=== PATIENT | female | born 1985 | race Caucasian/White ===

== ENCOUNTER 2016-11-12 09:27 | Outpatient (CLI) | payer OTHER ==
[2016-11-12] MEDS ORDERED: BUFFERED LIDOCAINE 10 ML SYRINGE IU ONE (12:39)
== END 2016-11-12 09:28 | disposition home or self-care (01) ==
DX: C73 Malignant neoplasm of thyroid gland (principal); E04.9 Nontoxic goiter, unspecified

== ENCOUNTER 2017-08-23 20:01 | Emergency (ER) | payer OTHER ==
[2017-08-23] MEDS ORDERED: SODIUM CHLORIDE 0.9% 1,000 ML IV ONE (20:33)
[2017-08-23 20:54] LABS: ALBUMIN/GLOBULIN RATIO 1.7 (1.0-2.2); BILIRUBIN,TOTAL 0.4 mg/dL (0.2-1.0); CALCIUM 7.8 mg/dL (8.5-10.3); CREATININE 0.8 mg/dL (0.4-1.0); POTASSIUM 3.3 mmol/L (3.5-5.0); TOTAL PROTEIN 7.1 g/dL (6.7-8.2)
[2017-08-23 20:57] LABS: BASOPHILS % (AUTO) 0.4 %; EOSINOPHILS # (AUTO) 0.1 10^3/uL (0.0-0.7); EOSINOPHILS % (AUTO) 1.6 %; HCT - HEMATOCRIT 37.6 % (37.0-47.0); HGB - HEMOGLOBIN 12.7 g/dL (12.0-16.0); LYMPHOCYTES # (AUTO) 2.6 10^3/uL (1.5-3.5); LYMPHOCYTES % (AUTO) 40.8 %; MEAN CORPUSCULAR HEMOGLOBIN 29.6 pg (27.0-31.0); MEAN CORPUSCULAR HGB CONC 33.9 g/dL (32.0-36.0); MEAN CORPUSCULAR VOLUME 87.5 fL (81.0-99.0); MEAN PLATELET VOLUME 7.7 fL (7.9-10.8); MONOCYTES # (AUTO) 0.6 10^3/uL (0.0-1.0); MONOCYTES % (AUTO) 8.8 %; NEUTROPHILS # (AUTO) 3.1 10^3/uL (1.5-6.6); NEUTROPHILS % (AUTO) 48.4 %; UNCORRECTED WHITE BLOOD COUNT 6.4 x10^3/uL; WHITE BLOOD COUNT 6.4 x10^3/uL (4.8-10.8)
[2017-08-23] MEDS ORDERED: CALCIUM GLUCONATE 1000 MG/10 ML VIAL IVP STA (21:03)
[2017-08-23] MEDS ORDERED: CALCIUM GLUCONATE 1000 MG/10 ML VIAL ONE (21:13)
[2017-08-23] MEDS ORDERED: CALCIUM CITRATE 250 MG TABLET PO ONE (21:26)
[2017-08-23] MEDS ORDERED: CALCIUM CITRATE 250 MG TABLET PO SCH (22:00)
--- NOTE | 2017-08-23 22:03 | ED Physician Documentation ---
History of Present Illness - Stated complaint Stated Complaint: TINGLING SENSATION EYES,FINGERTIPS - Chief complaint Chief Complaint: General - History obtained from History obtained from: Patient - History of Present Illness Timing: Today - Additonal information Additional information: Patient is a 32 year old female presenting to the emergency department for tingling in her face hands and feet. patient states that she had this once before and it was because her calcium was low. Patient had thyroid surgery but reports that her previous parathyroid levels have been normal. 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: None : None HEENT: None Psych: Depression, Post traumatic stress disorder Musculoskeletal: None Derm: None Other Past Medical History: Calcium deficiency - Past Surgical History Past Surgical History: Yes /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: section, Breast reduction - Present Medications Home Medications: Ambulatory Orders Medication Instructions Recorded Confirmed Calcium Carbonate/Vitamin D3 2 tab PO DAILY 08/23/17 08/23/17 [Calcium 600-Vit D3 500 Softgel] Calcium Citrate/Vitamin D3 1 tab PO DAILY 08/23/17 08/23/17 [Citracal-Vit D3 200 mg-250 Tab] Escitalopram Oxalate [Lexapro] 20 mg PO DAILY 08/23/17 08/23/17 Levothyroxine Sodium [Synthroid] 137 mcg PO DAILY 08/23/17 08/23/17 Loratadine [Claritin] 1 tab PO DAILY 08/23/17 08/23/17 - Allergies Allergies/Adverse Reactions: Allergies Allergy/AdvReac Type Severity Reaction Status Date / Time No Known Drug Allergies Allergy Verified 08/23/17 20:10 - Social History Does the pt smoke?: No Smoking Status: Never smoker Does the pt drink ETOH?: No Does the pt have substance abuse?: No - Immunizations Immunizations are current?: Yes PD ED PE NORMAL - Vitals Vital signs reviewed: Yes - General General: Alert and oriented X 3, No acute distress, Well developed/nourished - HEENT HEENT: Atraumatic, PERRL, Pharynx benign - Neck Neck: Supple, no meningeal sign - Cardiac Cardiac: RRR, No murmur - Respiratory Respiratory: No respiratory distress, Clear bilaterally - Abdomen Abdomen: Soft, Non tender, Non distended - Derm Derm: Normal color, Warm and dry, No rash - Extremities Extremities: No deformity, Normal ROM s pain, No edema, No calf tenderness / cord - Neuro Neuro: Alert and oriented X 3, No motor deficit, No sensory deficit, Normal speech, Other (no carpal pedal spasm, tetany or fasiculations) Eye Opening: Spontaneous Motor: Obeys Commands Verbal: Oriented GCS Score: 15 - Psych Psych: Normal mood Results - Vitals Vitals: Vital Signs - 24 hr 08/23/17 08/23/17 08/23/17 20:06 20:44 21:15 Temperature 36.5 C 36.4 C L Heart Rate 86 66 67 Respiratory 18 12 16 Rate Blood Pressure 118/83 H 145/79 H 136/80 H O2 Saturation 100 100 100 08/23/17 08/23/17 21:46 22:11 Temperature 37.4 C Heart Rate 69 89 Respiratory 16 18 Rate Blood Pressure 122/89 H 120/75 O2 Saturation 100 100 Oxygen O2 Source Room air - EKG (time done) 2032 Rate: Rate (enter#) (65) Rhythm: NSR Crawford: Normal Intervals: Other (qt 441 borderline prolong) Ischemia: Normal ST segments Compare to prior EKG: Old EKG unavailable - Labs Labs: Laboratory Tests 08/23/17 08/23/17 08/23/17 20:36 20:36 20:36 WBC 6.4 RBC 4.30 Hgb 12.7 Hct 37.6 MCV 87.5 MCH 29.6 MCHC 33.9 RDW 14.0 Plt Count 286 MPV 7.7 L Neut # 3.1 Lymph # 2.6 [facility] # 0.6 Eos # 0.1 Baso # 0.0 Absolute Nucleated RBC 0.00 Nucleated RBC % 0.0 Sodium 136 Potassium 3.3 L Chloride 102 Carbon Dioxide 25 Anion Gap 9.0 BUN 14 Creatinine 0.8 Estimated GFR (MDRD) 83 L Glucose 97 Calcium 7.8 L Total Bilirubin 0.4 AST 19 ALT 19 Alkaline Phosphatase 47 Total Protein 7.1 Albumin 4.5 Globulin 2.6 Albumin/Globulin Ratio 1.7 PTH Intact 28 PD MEDICAL DECISION MAKING - ED course Complexity details: reviewed old records, reviewed results, re-evaluated patient , considered differential, d/w patient ED course: patient was seen and examined at bedside. ekg was performed and was normal sinus with borderline qt. IV access was gained and labs were drawn. patient's calcium was slightly low at 7.8. Patient was treated with IV and oral calcium. patient's pth was within normal limits. patient required no further work up at this time and was stable for discharge with outpatient follow up. Departure - Departure Disposition: 01 Home, Self Care Clinical Impression: Hypocalcemia Condition: Good Instructions: ED Hypocalcemia Follow-Up: Jaron Mireles MD [Primary Care Provider] - Comments: Your symptoms today are likely being caused by low calcium. Your levels were only slightly decreased and you were treated with oral and IV calcium. You will need to continue with calcium supplementation. You should follow up with your pmd for a retirement solution. You should return to the emergency department at any time for numbness, tingling weakness, new, worsening or uncontrollable symptoms. Discharge Date/Time: 08/23/17 22:14
[2017-08-23 22:12] VITALS: BP 120/75
== END 2017-08-23 22:14 | disposition home or self-care (01) ==
LOC: ED 20:01
DX: E83.51 Hypocalcemia (principal)
CPT/HCPCS: 36415; 80053; 83970; 85025; 93005; 96361; 96374; 99284; A9270; 80048

== ENCOUNTER 2018-10-18 09:22 | Emergency (ER) | payer OTHER ==
--- NOTE | 2018-10-18 09:31 | ED Physician Documentation ---
PD HPI URI - Stated complaint Stated Complaint: FLU SYMPTOMS - History obtained from History obtained from: Patient - History of Present Illness Timing - onset: How many days ago (several) Timing duration: Days (several) Timing details: Abrupt onset, Still present Associated symptoms: Fever, Chills, Nasal congestion, Sore throat, Dry cough, Dyspnea. No: Chest pain, NVD, Bilateral edema Contributing factors: Sick contact (works in a school, so ill contacts often) Similar symptoms before: Has not had sx before Recently seen: Not recently seen Review of Systems Constitutional: reports: Fever, Chills, Myalgias Nose: reports: Congestion. denies: Rhinorrhea / runny nose Throat: reports: Sore throat Respiratory: reports: Cough GI: reports: Nausea. denies: Abdominal Pain, Vomiting, Diarrhea Skin: denies: Rash, Lesions Neurologic: reports: Generalized weakness, Headache. denies: Altered mental s tatus PD PAST MEDICAL HISTORY - Past Medical History Cardiovascular: Other Respiratory: None Endocrine/Autoimmune: None GI: None MARKETING RESEARCH INTERN: None : None HEENT: None Psych: Depression, Post traumatic stress disorder Musculoskeletal: None Derm: None - Past Surgical History Past Surgical History: Yes /MARKETING RESEARCH INTERN: section, Breast reduction - Present Medications Home Medications: Ambulatory Orders Medication Instructions Recorded Confirmed Calcium Carbonate/Vitamin D3 2 tab PO DAILY 08/23/17 10/18/18 [Calcium 600-Vit D3 500 Softgel] Calcium Citrate/Vitamin D3 1 tab PO DAILY 08/23/17 10/18/18 [Citracal-Vit D3 200 mg-250 Tab] Escitalopram Oxalate [Lexapro] 20 mg PO DAILY 08/23/17 10/18/18 Levothyroxine Sodium [Synthroid] 137 mcg PO DAILY 08/23/17 10/18/18 Loratadine [Claritin] 1 tab PO DAILY 08/23/17 10/18/18 Albuterol Sulf [Ventolin Hfa 1 - 2 puffs INH Q4HR PRN #1 inhaler 10/18/18 Inhaler] Benzonatate [Tessalon Perle] 100 mg PO TID PRN #25 capsule 10/18/18 Dexamethasone [Decadron] 4 mg PO DAILY #5 tablet 10/18/18 Ondansetron Odt [Zofran] 4 mg TL Q6H PRN #15 tablet 10/18/18 - Allergies Allergies/Adverse Reactions: Allergies Allergy/AdvReac Type Severity Reaction Status Date / Time No Known Drug Allergies Allergy Verified 10/18/18 09:29 - Social History Does the pt smoke?: No Smoking Status: Never smoker Does the pt drink ETOH?: Yes Does the pt have substance abuse?: No - Immunizations Immunizations are current?: Yes PD ED PE NORMAL - Vitals Vital signs reviewed: Yes - General General: Alert and oriented X 3, No acute distress, Well developed/nourished - HEENT HEENT: Ears normal, Moist mucous membranes, Pharynx benign - Neck Neck: Supple, no meningeal sign, No adenopathy - Cardiac Cardiac: RRR, No murmur - Respiratory Respiratory: Clear bilaterally - Abdomen Abdomen: Soft, Non tender - Back Back: No CVA TTP - Derm Derm: Normal color, Warm and dry, No rash Results - Vitals Vitals: Vital Signs - 24 hr 10/18/18 10/18/18 10/18/18 09:28 10:02 10:49 Temperature 36.3 C L Heart Rate 83 83 72 Respiratory 20 20 18 Rate Blood Pressure 138/78 H 112/87 H O2 Saturation 98 96 Oxygen O2 Source Room air PD MEDICAL DECISION MAKING - ED course Complexity details: reviewed results, considered differential, d/w patient Departure - Departure Disposition: 01 Home, Self Care Clinical Impression: Upper respiratory infection Qualifiers: URI type: unspecified URI Qualified Code(s): J06.9 - Acute upper respiratory infection, unspecified Condition: Stable Record reviewed to determine appropriate education?: Yes Instructions: ED Upper Resp Infec No Abx Tx Follow-Up: KAMILAH TORRES DO [Primary Care Provider] - Prescriptions: Albuterol Sulf [Ventolin Hfa Inhaler] 1 - 2 puffs INH Q4HR PRN #1 inhaler PRN Reason: Shortness Of Air/Wheezing Benzonatate [Tessalon Perle] 100 mg PO TID PRN #25 capsule PRN Reason: Cough Dexamethasone [Decadron] 4 mg PO DAILY #5 tablet Ondansetron Odt [Zofran] 4 mg TL Q6H PRN #15 tablet PRN Reason: Nausea / Vomiting Comments: This sounds like a viral illness and potentially flu like. Unfortunately no real treatments to make this better faster as far as the infection goes. We can try to help on the symptoms with medicine for nausea, cough, inflammation, wheezing. Use albuterol inhaler 2 puffs 4 times a day and extra times if needed for wheezing and cough. Decadron steroid daily for 4 5 days. Tessalon if needed for cough. Ondansetron for nausea. Drink lots of fluids and use Tylenol or ibuprofen for fevers or pains. Presumably he would be improving over the next several days or so since this commonly are about a week or so in duration. Discharge Date/Time: 10/18/18 10:51
[2018-10-18] MEDS ORDERED: ONDANSETRON ODT 4 MG TABLET TL STA (09:44)
[2018-10-18] MEDS ORDERED: DEXAMETHASONE 10 MG/ML VIAL PO STA (09:44)
[2018-10-18] MEDS ORDERED: ALBUTEROL NEB 2.5 MG/3 ML INH STA (09:44)
[2018-10-18] MEDS ORDERED: BENZONATATE 100 MG CAPSULE PO STA (09:44)
[2018-10-18 10:51] VITALS: BP 112/87
== END 2018-10-18 10:51 | disposition home or self-care (01) ==
LOC: ED 09:22
DX: J06.9 Acute upper respiratory infection, unspecified (principal); R06.2 Wheezing
CPT/HCPCS: 94640; 99283; A9270; Q0162

== ENCOUNTER 2018-12-10 08:00 | Outpatient (CLI) | payer OTHER | END 2018-12-10 23:59 | disposition home or self-care (01) | LOC: LAB.R 08:00 | PROVIDERS: ATTEND Obstetrics & Gynecology | DX: N89.8 Other specified noninflammatory disorders of vagina (principal) | CPT/HCPCS: 87480; 87510; 87660 ==

== ENCOUNTER 2019-03-10 10:02 | Outpatient (CLI) | payer OTHER ==
[2019-03-10 10:31] LABS: BILIRUBIN,URINE NEGATIVE (NEGATIVE); GLUCOSE, URINE (UA) NEGATIVE (NEGATIVE); KETONES,URINE (UA) NEGATIVE (NEGATIVE); LEUKOCYTE ESTERASE, URINE NEGATIVE (NEGATIVE); NITRITE,URINE NEGATIVE (NEGATIVE); OCCULT BLOOD,URINE NEGATIVE (NEGATIVE); PH,URINE 7.5 PH (5.0-7.5); PROTEIN,URINE NEGATIVE (NEGATIVE); UROBILINOGEN,URINE 0.2 (NORMAL) E.U./dL (NORMAL)
[2019-03-10 10:32] LABS: BASOPHILS % (AUTO) 0.5 %; EOSINOPHILS # (AUTO) 0.1 10^3/uL (0.0-0.7); EOSINOPHILS % (AUTO) 1.2 %; LYMPHOCYTES # (AUTO) 2.4 10^3/uL (1.5-3.5); LYMPHOCYTES % (AUTO) 39.1 %; MEAN CORPUSCULAR HEMOGLOBIN 29.7 pg (27.0-31.0); MEAN CORPUSCULAR HGB CONC 32.7 g/dL (32.0-36.0); MEAN CORPUSCULAR VOLUME 90.6 fL (81.0-99.0); MEAN PLATELET VOLUME 9.9 fL (7.9-10.8); MONOCYTES # (AUTO) 0.5 10^3/uL (0.0-1.0); MONOCYTES % (AUTO) 8.4 %; NEUTROPHILS # (AUTO) 3.1 10^3/uL (1.5-6.6); NEUTROPHILS % (AUTO) 50.6 %; PLT - PLATELET COUNT 289 10^3/uL (130-450); RED BLOOD COUNT 4.38 10^6/uL (4.20-5.40); RED CELL DISTRIBUTION WIDTH 12.7 % (12.0-15.0)
[2019-03-10 10:35] LABS: CLARITY,URINE CLEAR (CLEAR); HCG UR QUAL NEGATIVE
[2019-03-10 10:39] LABS: ALBUMIN 4.1 g/dL (3.2-5.5); ALBUMIN/GLOBULIN RATIO 1.5 (1.0-2.2); BILIRUBIN,TOTAL 0.6 mg/dL (0.2-1.0); CALCIUM 8.5 mg/dL (8.5-10.3); CREATININE 0.7 mg/dL (0.4-1.0); TOTAL PROTEIN 6.9 g/dL (6.7-8.2)
== END 2019-03-10 10:03 | disposition home or self-care (01) ==
LOC: LAB 10:02
PROVIDERS: ATTEND Obstetrics & Gynecology
DX: Z01.812 Encounter for preprocedural laboratory examination (principal); N92.0 Excessive and frequent menstruation with regular cycle; N94.6 Dysmenorrhea, unspecified
CPT/HCPCS: 36415; 80053; 81001; 81003; 81025; 85025; 86850; 86900; 86901

== ENCOUNTER 2019-03-11 06:43 | Inpatient (IN) | payer OTHER ==
[2019-03-11] MEDS ORDERED: CEFAZOLIN SODIUM IN 0.9 % NACL 2 GM/100 ML BAG IV ONE (07:21)
[2019-03-11] MEDS ORDERED: LACTATED RINGERS 1,000 ML IV ONE ×2 (07:37→12:22)
[2019-03-11] MEDS ORDERED: BUPIVACAINE 0.25%-EPI 1:200000 PF 30 ML VIAL ONE (07:45)
[2019-03-11] MEDS ORDERED: METHYLENE BLUE 0.5% 50 MG/10 ML AMPULE ONE (07:46)
--- NOTE | 2019-03-11 07:57 | ANESTHESIA ---
Pre-Anesthesia VS, & Labs - Diagnosis Menorrhagia - Procedure Lap assist vaginal hysterectomy, cystoscopy Vital Signs: Temp Pulse Resp BP Pulse Ox 36.3 C L 78 15 121/81 H 97 03/11/19 07:15 03/11/19 07:15 03/11/19 07:15 03/11/19 07:15 03/11/19 07:15 Height 5 ft 2 in Weight (kg) 86 kg Body Mass Index 32.3 - NPO >8 hours - Is Patient ?: No - Lab Results Lab results reviewed: Yes Home Medications and Allergies Home Medications: Ambulatory Orders Calcitriol [Rocaltrol] 0.25 mcg PO BID 03/10/19 Calcium Carbonate/Vitamin D3 [Calcium 600-Vit D3 500 Softgel] 1 tab PO DAILY 08/23/17 Escitalopram Oxalate [Lexapro] 20 mg PO DAILY 08/23/17 Levothyroxine Sodium [Synthroid] 137 mcg PO DAILY 08/23/17 Loratadine [Claritin] 1 tab PO DAILY PRN 08/23/17 Calcitriol [Rocaltrol] 0.25 mcg PO BID 03/10/19 Allergies/Adverse Reactions: Allergies Allergy/AdvReac Type Severity Reaction Status Date / Time No Known Drug Allergies Allergy Verified 10/18/18 09:29 Anes History & Medical History - Anesthetic History Anesthesia Complications: reports: No previous complications Family history of Anesthesia Complications: Denies Family history of Malignant Hyperthermia: Denies - Medical History Cardiovascular: reports: None Pulmonary: reports: None Gastrointestinal: reports: None Urinary: reports: None Neuro: reports: None Musculoskeletal: reports: None Endocrine/Autoimmune: reports: HyPOthyroidism Blood Disorders: reports: None Skin: reports: None Smoking Status: Former smoker Psychosocial: reports: No issues indicated - Surgical History General: Other Gynecologic: section, Breast reduction Exam General: Alert Dental: TMJ Mouth Opening: Greater than 4 Fingerbreadths Neck Mobility: Normal Mallampati classification: I Thyromental Distance: greater than 6 cm Respiratory: Lungs clear Cardiovascular: Regular rate Mental/Cognitive Status: Alert/Oriented X3 Cognitive Status: Within normal limits Plan Anesthesia Type: General Consent for Procedure(s) Verified and Reviewed: Yes Code Status: Attempt Resuscitation ASA classification: 2-Mild systemic disease Is this case an emergency?: No
[2019-03-11] MEDS ORDERED: BUPIVACAINE 0.25% PF 30 ML VIAL SUBQ ONE (09:46)
[2019-03-11] MEDS ORDERED: MIDAZOLAM 2 MG/2 ML VIAL IVP ONE (12:45)
[2019-03-11] MEDS ORDERED: LIDOCAINE-MPF 2% 5 ML VIAL IM ONE (12:45)
[2019-03-11] MEDS ORDERED: fentaNYL 250 MCG/5 ML VIAL IVP ONE (12:45)
[2019-03-11] MEDS ORDERED: ePHEDrine 50 MG/ML VIAL IVP ONE (12:45)
[2019-03-11] MEDS ORDERED: HYDROmorphone 1 MG/ML SYRINGE IVP ONE (12:45)
[2019-03-11] MEDS ORDERED: ONDANSETRON 4 MG/2 ML VIAL IVP ONE (12:45)
[2019-03-11] MEDS ORDERED: NEOSTIGMINE 1 MG/1 ML 10 ML MDV IVP ONE (12:45)
[2019-03-11] MEDS ORDERED: GLYCOPYRROLATE 1 MG/5 ML VIAL IVP ONE (12:45)
[2019-03-11] MEDS ORDERED: PROPOFOL 200 MG/20 ML VIAL IVP ONE (12:45)
[2019-03-11] MEDS ORDERED: ROCURONIUM 50 MG/5 ML VIAL IVP ONE (12:45)
[2019-03-11] MEDS ORDERED: KETOROLAC 30 MG/ML VIAL IVP ONE (12:45)
[2019-03-11] MEDS ORDERED: ceFAZolin 1 GM VIAL IV ONE (12:45)
[2019-03-11] MEDS ORDERED: DEXAMETHASONE 4 MG/ML VIAL IVP ONE (12:45)
[2019-03-11] MEDS ORDERED: ACETAMINOPHEN 1,000 MG/100 ML 100 ML IV ONE (12:45)
[2019-03-11] MEDS: HYDROmorphone 1 MG/ML CARPUJECT ONE ×4 (13:32→14:02)
[2019-03-11] MEDS ORDERED: LORazepam 2 MG/ML VIAL IVP PRN (13:33)
[2019-03-11] MEDS ORDERED: ONDANSETRON 4 MG/2 ML VIAL IVP PRN ×2 (13:33)
[2019-03-11] MEDS ORDERED: HYDROmorphone PCA 20MG/100ML IV PRN (13:38)
--- NOTE | 2019-03-11 13:38 | XRAY Report ---
Reason: INCORRECT COUNT Procedure Date: 03/11/2019 Accession Number: [id number] / [id number] Procedure: XR - Hip w/Pelvis 1V LT CPT Code: FULL RESULT: EXAM: PELVIS RADIOGRAPHY EXAM DATE: 03/11/2019 12:52 PM. CLINICAL HISTORY: Incorrect count. COMPARISON: None. TECHNIQUE: 1 view. FINDINGS: Bones: Normal. No fracture or bone lesion. Joints: The visualized hip, pubis symphysis, and sacroiliac joints are preserved. No subluxation. Soft Tissues: No surgical instrument is seen within the visualized abdomen or pelvis. A linear density is seen projecting over the crest of the left acetabulum, approximately 1 mm in diameter and 7.4 cm length, correlate to external objects. Additionally, operative table hardware, presumed lithotomy position is visualized. IMPRESSION: No definite radiopaque surgical instrument is seen within the abdomen or pelvis, additional findings as described above. [facility] The call report notification system was initiated by Dr. Amari Lopez at 01:37 PM on 03/11/2019. ADDENDUM: 03/11/19 14:41 hrs. The above critical test findings were discussed with the interim director of surgical services in person at the OR desk as Dr. Vazquez Springer is currently operating by Dr. Amari Lopez at 02:41 PM on 03/11/2019. I am told that the final instrument count was correct.
--- NOTE | 2019-03-11 13:45 | OPERATIVE REPORT ---
Operative Report - General Procedure Date: 03/11/19 Planned Procedure: TLH with BS adn cysto Pre-Op Diagnosis: Menorrhagia, dysmenorrhea Procedure Performed: Laproscopy with lysis of adhesions, inadvertent cystotomy, open abdominal hysterectomy, right salpingectomy, cystotomy repair , cystoscopy. Post Op Diagnosis: dense pelvic adhesions - Procedure Note Primary Surgeon: Vazquez Springer MD Secondary Surgeon: Anshul Centeno MD Anesthesia Provider: Doroteo Little CRNA Anesthesia Technique: General ET tube Pathology: Uterus wiht right Tube IV Fluids (mL): 2,500 Estimated Blood Loss (mL): 200 Urine Output (mL): 650 Drain/Tube Type: Other (wound Vac) Findings: very dense Adhesions
[2019-03-11] MEDS: HYDROmorphone 0.5 MG/0.5 ML SYRINGE IVP PRN (13:49)
[2019-03-11] MEDS ORDERED: HYDROmorphone 1 MG/ML CARPUJECT ONE ×2 (13:53→14:08)
[2019-03-11] MEDS ORDERED: ACETAMINOPHEN 500 MG TABLET PO SCH ×2 (14:00→16:00)
[2019-03-11] MEDS ORDERED: SODIUM CHLORIDE FLUSH 0.9% 10 ML SYRINGE ONE (15:55)
[2019-03-11] MEDS: LACTATED RINGERS 1,000 ML IV SCH (15:56)
[2019-03-11] MEDS: KETOROLAC 30 MG/ML VIAL IVP SCH ×2 (15:57→23:57)
[2019-03-11] MEDS: SIMETHICONE CHEW 80 MG TABLET PO SCH (19:29)
[2019-03-11] MEDS ORDERED: DOCUSATE SODIUM 100 MG CAPSULE PO SCH (21:00)
[2019-03-11] MEDS ORDERED: ESCITALOPRAM 10 MG TABLET PO SCH (21:00)
[2019-03-11] MEDS: DOCUSATE SODIUM 100 MG CAPSULE PO SCH (21:54)
--- NOTE | 2019-03-11 22:33 | OPERATIVE REPORT ---
DATE OF SERVICE: 03/11/2019 Physician: Vazquez Springer MD PREOPERATIVE DIAGNOSES 1. Menorrhagia. 2. Dysmenorrhea. 3. Status post section x4. POSTOPERATIVE DIAGNOSES 1. Menorrhagia. 2. Dysmenorrhea. 3. Status post section x4. 4. Dense adhesions to the anterior abdominal wall. PROCEDURE: Laparoscopically-assisted vaginal hysterectomy, neocystotomy, open hysterectomy with right salpingectomy, repair of neocystotomy and cystoscopy. SURGEON: Vazquez Springer MD AUTOMATION SOFTWARE ENGINEER: Anshul Centeno DO ANESTHESIA: Meredith Little CRNA ANESTHETIC: General via endotracheal tube. PATHOLOGY: Uterus with right tube. ESTIMATED BLOOD LOSS: 200 mL IV FLUIDS: 2500 mL URINE OUTPUT: 650 mL. FINDINGS: Upon entering the abdominal cavity, there were very dense adhesions of the uterus to the anterior abdominal wall. This was secondary to her previous section x4. There were also some adhesions on the right side, as well as the left side. Upon dissecting the uterus off the anterior abdominal wall, a neocystotomy was performed. This was diagnosed at time of cystoscopy. The patient had not been closed and so for this reason the neocystotomy was closed prior to closing the abdomen. DESCRIPTION OF PROCEDURE: Following adequate endotracheal anesthesia, the patient was placed in the dorsal lithotomy position. Pelvic examination under anesthesia revealed a uterus which was somewhat enlarged. At this point, she was prepped and draped in the usual fashion. A speculum was placed in the vagina. The cervix was visualized, grasped with a single-tooth tenaculum and VCare uterine manipulator was placed in the vagina. Care was taken to snug the green cup up into the fornices. At this point, the dividing machine operator helper's gloves were changed and then a stab wound was made in the subumbilical area with a #11 blade following local anesthesia of 0.25% Marcaine with epinephrine. A video laparoscope was introduced with first pass. Two additional ports were placed, both in the left and right lower quadrants following local anesthesia with 0.25% Marcaine with epinephrine, as well as the skin incision. At this point, the uterus was encountered and noted to be enlarged, and there was also evidence of dense adhesions of the uterus to the anterior abdominal wall. There were also adhesions of the left ovary, as well as the right fallopian tube. Utilizing the LigaSure, the adhesions were lysed on the left-hand side by Dr. Centeno. The adhesions on the right hand side were also lysed. The anterior abdominal wall adhesions were brought down utilizing the LigaSure. Care was taken to stay as close to the uterus was possible to decrease the risk of injury to bowel or bladder. This was carried down to the lower portion of the uterus. At this point, the rotary swaging machine operator noted there was CO2 in the Farnsworth bag. So for this reason, it was felt that a neocystotomy had been performed. The decision was made to open the abdominal cavity. This was done and Pfannenstiel incision carried through the previous incision. The rectus fascia was incised transversely, and then utilizing blunt and sharp dissection was freed from the rectus. The rectus was split high. Care was taken to avoid injury to bowel or bladder, the peritoneum entered and the incision was carried superiorly and inferiorly. At this point, the rent in the bladder was identified. This was left alone at this time. The remainder of the hysterectomy was accomplished. The uterine vessels on the left hand side were clamped, divided, and ligated by Dr. Centeno. This was carried down all the way to the fornix on the left hand side. The right hand side was treated in an identical fashion. Bladder was dissected off the lower uterine segment. At this point, the uterus was amputated from the apex of the vagina utilizing Curtis scissors. The corner sutures of the vagina were closed utilizing 0 Vicryl and then the apex of the vagina was closed utilizing 0 Vicryl [id number]. At this point, the rent in the bladder was inspected and closed utilizing 2-0 Vicryl in a running suture. The area was then reinforced with 2-0 Vicryl in an imbricating layer. At this point, cystoscopy was performed. There was evidence of further rent. So this was once again closed abdominally with 2-0 Vicryl, then imbricated with 2-0 Vicryl. Cystoscope was reintroduced. There was evidence of good closure and no evidence of any loss of fluid in the abdominal cavity. At this point, the ureters were visualized and there was evidence of good flow through both ureters. The dividing machine operator helper's gloves were changed, and then utilizing 0 Vicryl the posterior cul-de-sac was closed utilizing 2-0 Vicryl. The area was inspected for bleeding, none was noted. The instruments were then removed from the abdominal cavity. The peritoneum was closed utilizing 2-0 Vicryl. The rectus was noted to be free of bleeding, so the fascia was closed utilizing a looped PDS in a running suture. The subcutaneous tissue was closed utilizing 2-0 Vicryl and the incision itself was closed using 4-0 Monocryl subcuticular. At this point, because of an incomplete instrument count, an x-ray was performed which showed an empty pelvis. No evidence of any lap sponges or instruments were seen. A wound VAC was then placed, and then a Farnsworth catheter was replaced in the bladder under sterile conditions. The patient tolerated the procedure well and was taken to recovery in stable condition. TD: 03/11/2019 16:20 MTDD
[2019-03-11] MEDS: ACETAMINOPHEN 500 MG TABLET PO SCH (23:57)
[2019-03-12] MEDS: LACTATED RINGERS 1,000 ML IV SCH (01:38)
[2019-03-12 04:55] LABS: BASOPHILS % (AUTO) 0.2 %; EOSINOPHILS % (AUTO) 0.2 %; HGB - HEMOGLOBIN 9.8 g/dL (12.0-16.0); LYMPHOCYTES # (AUTO) 1.6 10^3/uL (1.5-3.5); LYMPHOCYTES % (AUTO) 19.5 %; MEAN CORPUSCULAR HEMOGLOBIN 29.3 pg (27.0-31.0); MEAN CORPUSCULAR HGB CONC 31.9 g/dL (32.0-36.0); MEAN CORPUSCULAR VOLUME 91.9 fL (81.0-99.0); MEAN PLATELET VOLUME 10.1 fL (7.9-10.8); MONOCYTES # (AUTO) 0.8 10^3/uL (0.0-1.0); MONOCYTES % (AUTO) 8.9 %; NEUTROPHILS % (AUTO) 70.8 %; PLT - PLATELET COUNT 203 10^3/uL (130-450); RED BLOOD COUNT 3.34 10^6/uL (4.20-5.40); RED CELL DISTRIBUTION WIDTH 12.9 % (12.0-15.0); WHITE BLOOD COUNT 8.4 x10^3/uL (4.8-10.8)
[2019-03-12] MEDS: KETOROLAC 30 MG/ML VIAL IVP SCH ×3 (05:29→17:48)
[2019-03-12] MEDS: LEVOTHYROXINE 25 MCG TABLET PO SCH (06:29)
[2019-03-12] MEDS: LEVOTHYROXINE 112 MCG TABLET PO SCH (06:30)
--- NOTE | 2019-03-12 08:23 | PROVIDER PROGRESS NOTE ---
Subjective - General Admit Date: 03/11/19 Procedure Date: 03/11/19 Post Op Days: 1 Procedure Performed: VALERI RS repare of neocystotomy cysto - Review of Systems Wound/Incisions: positive: Dressing dry and intact (Wound Vac functioning well) General: positive: No symptoms (Post op pain 12/24. Ptnotes good pain control, no flatus.) HEENT: positive: No symptoms Pulmonary: positive: No symptoms Cardiovascular: positive: No symptoms Gastrointestinal: negative: Nausea, Vomiting, Flatus Genitourinary: positive: No symptoms Musculoskeletal: positive: No symptoms Psychiatric: positive: No symptoms Objective - Patient Data Reviewed Vital Signs: Yes Vital Signs: Vital Signs x48h Temp Pulse Resp BP Pulse Ox 03/12/19 07:30 16 03/12/19 07:10 72 90/45 L 03/12/19 05:30 82 89/57 L 03/12/19 04:36 36.9 C 72 16 92/47 L 97 03/12/19 02:00 16 Weight: Weight 03/10/19 03/11/19 03/12/19 23:59 23:59 23:59 Weight (kg) 86 kg Intake & Output: Intake and Output Totals x24h 03/10/19 03/11/19 03/12/19 23:59 23:59 23:59 Intake Total 2100 1956.667 Output Total 1400 2850 Balance 700 -893.333 - Lab Results Lab Results: 03/12/19 04:20 Other Lab Results: Lab Results x24hrs 03/12/19 Range/Units 04:20 WBC 8.4 (4.8-10.8) x10^3/uL RBC 3.34 L (4.20-5.40) 10^6/uL Hgb 9.8 L (12.0-16.0) g/dL Hct 30.7 L (37.0-47.0) % MCV 91.9 (81.0-99.0) fL MCH 29.3 (27.0-31.0) pg MCHC 31.9 L (32.0-36.0) g/dL RDW 12.9 (12.0-15.0) % Plt Count 203 (130-450) 10^3/uL MPV 10.1 (7.9-10.8) fL Neut # (Auto) 6.0 (1.5-6.6) 10^3/uL Lymph # (Auto) 1.6 (1.5-3.5) 10^3/uL [place] # (Auto) 0.8 (0.0-1.0) 10^3/uL Eos # (Auto) 0.0 (0.0-0.7) 10^3/uL Baso # (Auto) 0.0 (0.0-0.1) 10^3/uL Absolute Nucleated RBC 0.00 x10^3/uL Nucleated RBC % 0.0 /100WBC - Imaging Results Radiology Imaging: positive: Final report received (no retained instruments) - Current Medications Current Medications: Current Medications Generic Name Dose Route Start Last Admin Trade Name Freq PRN Reason Stop Dose Admin Acetaminophen 1,000 mg 03/12/19 00:00 03/11/19 23:57 Tylenol PO 1,000 mg Q8H JACKSON Administration Docusate Sodium 100 mg 03/11/19 21:00 03/11/19 21:54 Colace 100mg Capsule PO 100 mg BID JACKSON Administration Escitalopram Oxalate 10 mg 03/11/19 21:00 03/11/19 21:30 Lexapro PO Not Given HS JACKSON Hydromorphone HCl 0.5 mg 03/11/19 13:33 03/11/19 13:49 Dilaudid Inj Syringe IVP 0.6 mg Q30M PRN Administration Breakthrough Pain Hydromorphone HCl 0 mg 03/11/19 13:38 03/11/19 16:58 Dilaudid Home Health Aide 20mg/100ml IV 20 mg PRN PRN Administration Abdominal Pain Protocol Ketorolac Tromethamine 30 mg 03/11/19 16:00 03/12/19 05:29 Toradol Inj (30mg) IVP 03/16/19 15:59 30 mg Q6HR JACKSON Administration Levothyroxine Sodium 112 mcg 03/12/19 07:00 03/12/19 06:30 Synthroid PO 112 mcg QDAC JACKOSN Administration Levothyroxine Sodium 25 mcg 03/12/19 07:00 03/12/19 06:29 Synthroid PO 25 mcg QDAC JACKSON Administration Simethicone 80 mg 03/11/19 18:00 03/11/19 19:29 Mylicon PO 80 mg 0900,1300,1800 ON LICENSE OF [facility] Administration - Physical Exam Wound/Incisions: positive: Dressing dry and intact General Appearance: positive: No acute distress, Alert Respiratory: positive: Chest non-tender, No respiratory distress, Breath sounds nml Cardiovascular: positive: Regular rate & rhythm, No murmur, No gallop Abdomen: positive: Nml bowel sounds, No distention Back: negative: CVA tenderness (R), CVA tenderness (L) Skin: positive: Color nml, No rash, Warm, Dry Extremities: negative: Calf tenderness, Kate's sign/cords Neurologic/Psychiatric: positive: Oriented x3 Impression/Plan - Problem List Problem List: POD # 1 progressing dilutional Anemia. Pt had 2400 ml during surgery. excellent ruin out put. Pt has low BP normally no tachycardia. Plan CBC noon KVO IV clear liquids until passing flatus Change to oral pain meds noon
[2019-03-12] MEDS ORDERED: LACTATED RINGERS 1,000 ML IV SCH (09:00)
[2019-03-12] MEDS: ACETAMINOPHEN 500 MG TABLET PO SCH ×2 (09:59→17:48)
[2019-03-12] MEDS: SIMETHICONE CHEW 80 MG TABLET PO SCH ×3 (09:59→17:48)
[2019-03-12] MEDS: LORATADINE 10 MG TABLET PO SCH (09:59)
[2019-03-12] MEDS: DOCUSATE SODIUM 100 MG CAPSULE PO SCH ×2 (09:59→20:47)
[2019-03-12 12:06] LABS: BASOPHILS % (AUTO) 0.5 %; EOSINOPHILS # (AUTO) 0.1 10^3/uL (0.0-0.7); EOSINOPHILS % (AUTO) 1.2 %; HGB - HEMOGLOBIN 9.7 g/dL (12.0-16.0); LYMPHOCYTES # (AUTO) 1.8 10^3/uL (1.5-3.5); LYMPHOCYTES % (AUTO) 31.5 %; MEAN CORPUSCULAR HEMOGLOBIN 29.5 pg (27.0-31.0); MEAN CORPUSCULAR HGB CONC 31.7 g/dL (32.0-36.0); MEAN PLATELET VOLUME 9.3 fL (7.9-10.8); MONOCYTES # (AUTO) 0.5 10^3/uL (0.0-1.0); MONOCYTES % (AUTO) 9.5 %; NEUTROPHILS # (AUTO) 3.3 10^3/uL (1.5-6.6); NEUTROPHILS % (AUTO) 57.1 %; PLT - PLATELET COUNT 198 10^3/uL (130-450); RED BLOOD COUNT 3.29 10^6/uL (4.20-5.40); WHITE BLOOD COUNT 5.7 x10^3/uL (4.8-10.8)
[2019-03-12] MEDS: oxyCODONE 5 MG TABLET PO PRN ×2 (15:44→20:46)
[2019-03-12] MEDS ORDERED: SODIUM CHLORIDE FLUSH 0.9% 10 ML SYRINGE ONE (17:52)
[2019-03-12] MEDS: HYDROmorphone 0.5 MG/0.5 ML SYRINGE IVP PRN (19:21)
[2019-03-12] MEDS: ESCITALOPRAM 10 MG TABLET PO SCH (20:46)
[2019-03-13] MEDS: KETOROLAC 30 MG/ML VIAL IVP SCH ×4 (00:41→17:27)
[2019-03-13] MEDS ORDERED: SODIUM CHLORIDE FLUSH 0.9% 10 ML SYRINGE ONE ×3 (00:42→17:29)
[2019-03-13] MEDS: ACETAMINOPHEN 500 MG TABLET PO SCH ×3 (02:25→17:27)
[2019-03-13] MEDS: LEVOTHYROXINE 25 MCG TABLET PO SCH (06:25)
[2019-03-13] MEDS: LEVOTHYROXINE 112 MCG TABLET PO SCH (06:25)
[2019-03-13] MEDS: LORATADINE 10 MG TABLET PO SCH (08:11)
[2019-03-13] MEDS: oxyCODONE 5 MG TABLET PO PRN ×3 (08:11→22:47)
[2019-03-13] MEDS: SIMETHICONE CHEW 80 MG TABLET PO SCH ×3 (08:11→17:28)
[2019-03-13] MEDS: DOCUSATE SODIUM 100 MG CAPSULE PO SCH ×2 (08:18→20:58)
[2019-03-13] MEDS ORDERED: ESCITALOPRAM 10 MG TABLET PO SCH (09:00)
--- NOTE | 2019-03-13 09:07 | PROVIDER PROGRESS NOTE ---
Subjective - General Admit Date: 03/11/19 Procedure Date: 03/11/19 Post Op Days: 2 Procedure Performed: VALERI RS repare of neocystotomy cysto - Review of Systems Wound/Incisions: positive: Dressing dry and intact (Incisional pain) General: positive: No symptoms (Post op pain 5/10. Pt notes good pain control. Currently on orals. Passing flatus. neha bladdder pain .) HEENT: positive: No symptoms Pulmonary: positive: No symptoms Cardiovascular: positive: No symptoms Gastrointestinal: positive: Flatus. negative: Nausea, Vomiting Genitourinary: positive: No symptoms. negative: Pain Musculoskeletal: positive: No symptoms Psychiatric: positive: No symptoms Objective - Patient Data Reviewed Vital Signs: Yes Weight: Weight 03/11/19 03/12/19 03/13/19 23:59 23:59 23:59 Weight (kg) 86 kg Intake & Output: Intake and Output Totals x24h 03/11/19 03/12/19 03/13/19 23:59 23:59 23:59 Intake Total 2100 7950.000 Output Total 1400 6250 1400 Balance 700 1700.000 -1400 - Lab Results Lab Results: 03/12/19 12:00 Other Lab Results: Lab Results x24hrs 03/12/19 Range/Units 12:00 WBC 5.7 (4.8-10.8) x10^3/uL RBC 3.29 L (4.20-5.40) 10^6/uL Hgb 9.7 L (12.0-16.0) g/dL Hct 30.6 L (37.0-47.0) % MCV 93.0 (81.0-99.0) fL MCH 29.5 (27.0-31.0) pg MCHC 31.7 L (32.0-36.0) g/dL RDW 13.0 (12.0-15.0) % Plt Count 198 (130-450) 10^3/uL MPV 9.3 (7.9-10.8) fL Neut # (Auto) 3.3 (1.5-6.6) 10^3/uL Lymph # (Auto) 1.8 (1.5-3.5) 10^3/uL [place] # (Auto) 0.5 (0.0-1.0) 10^3/uL Eos # (Auto) 0.1 (0.0-0.7) 10^3/uL Baso # (Auto) 0.0 (0.0-0.1) 10^3/uL Absolute Nucleated RBC 0.00 x10^3/uL Nucleated RBC % 0.0 /100WBC - Current Medications Current Medications: Current Medications Generic Name Dose Route Start Last Admin Trade Name Freq PRN Reason Stop Dose Admin Acetaminophen 1,000 mg 03/12/19 00:00 03/13/19 02:25 Tylenol PO 1,000 mg Q8H JACKSON Administration Docusate Sodium 100 mg 03/11/19 21:00 03/13/19 08:18 Colace 100mg Capsule PO 100 mg BID JACKSON Administration Escitalopram Oxalate 10 mg 03/12/19 21:00 03/12/19 20:46 Lexapro PO 10 mg HS JACKSON Administration Hydromorphone HCl 0.5 mg 03/11/19 13:33 03/12/19 19:21 Dilaudid Inj Syringe IVP 0.5 mg Q30M PRN Administration Breakthrough Pain Ketorolac Tromethamine 30 mg 03/11/19 16:00 03/13/19 06:25 Toradol Inj (30mg) IVP 03/16/19 15:59 30 mg Q6HR JACKSON Administration Levothyroxine Sodium 112 mcg 03/12/19 07:00 03/13/19 06:25 Synthroid PO 112 mcg QDAC JACKSON Administration Levothyroxine Sodium 25 mcg 03/12/19 07:00 03/13/19 06:25 Synthroid PO 25 mcg QDAC JACKSON Administration Loratadine 10 mg 03/12/19 09:00 03/13/19 08:11 Claritin PO 10 mg DAILY JACKSON Administration Oxycodone HCl 10 mg 03/11/19 13:33 03/13/19 08:11 Roxicodone PO 10 mg Q4HR PRN Administration PAIN Simethicone 80 mg 03/11/19 18:00 03/13/19 08:11 Mylicon PO 80 mg 0900,1300,1800 JACKSON Administration - Physical Exam Wound/Incisions: positive: Dressing dry and intact (wound Vac functioning) General Appearance: positive: No acute distress, Alert Respiratory: positive: Chest non-tender, No respiratory distress, Breath sounds nml. negative: Wheezes, Rales Cardiovascular: positive: Regular rate & rhythm, No murmur, No gallop Abdomen: positive: Nml bowel sounds, No distention, Tenderness (at wound site) Back: negative: CVA tenderness (R), CVA tenderness (L) Extremities: negative: Calf tenderness, Kate's sign/cords Neurologic/Psychiatric: positive: Oriented x3 Impression/Plan - Problem List Problem List: POD # 2 S/P LAVH/VALERI. RS Cysto Progress slowing. Afebrile good out put. CBC Rx for Oxycodone and colace written anticipate discharge in AM.
[2019-03-13 09:36] LABS: HGB - HEMOGLOBIN 9.3 g/dL (12.0-16.0); MEAN CORPUSCULAR HEMOGLOBIN 30.5 pg (27.0-31.0); MEAN CORPUSCULAR HGB CONC 32.5 g/dL (32.0-36.0); MEAN CORPUSCULAR VOLUME 93.8 fL (81.0-99.0); MEAN PLATELET VOLUME 9.6 fL (7.9-10.8); RED BLOOD COUNT 3.05 10^6/uL (4.20-5.40); WHITE BLOOD COUNT 6.6 x10^3/uL (4.8-10.8)
[2019-03-13] MEDS: NITROFURANTOIN MACRO 100 MG CAPSULE PO SCH (11:40)
[2019-03-13] MEDS: ESCITALOPRAM 10 MG TABLET PO SCH (20:58)
[2019-03-13] MEDS: CALCIUM CARBONATE CHEW 500 MG TABLET PO SCH (22:08)
[2019-03-13] MEDS: CALCITRIOL 0.25 MCG CAPSULE PO SCH (22:08)
[2019-03-14] MEDS: KETOROLAC 30 MG/ML VIAL IVP SCH ×2 (00:31→06:34)
[2019-03-14] MEDS: SODIUM CHLORIDE FLUSH 0.9% 10 ML SYRINGE IVP PRN ×2 (00:32→06:36)
[2019-03-14] MEDS ORDERED: SODIUM CHLORIDE FLUSH 0.9% 10 ML SYRINGE ONE (00:35)
[2019-03-14] MEDS: ACETAMINOPHEN 500 MG TABLET PO SCH ×2 (02:05→10:44)
[2019-03-14] MEDS: LEVOTHYROXINE 112 MCG TABLET PO SCH (06:35)
[2019-03-14] MEDS: LEVOTHYROXINE 25 MCG TABLET PO SCH (06:36)
[2019-03-14 09:14] VITALS: BP 102/48
--- NOTE | 2019-03-14 09:34 | PROVIDER PROGRESS NOTE ---
Subjective - General Admit Date: 03/11/19 Procedure Date: 03/11/19 Post Op Days: 3 Procedure Performed: VALERI RS repare of neocystotomy cysto - Review of Systems Wound/Incisions: positive: Healing well, Dressing dry and intact (wound Vac functioning), No drainage General: positive: No symptoms (Post op pain 5/10. Pt notes good pain control. Currently on orals. Passing flatus. neha bladdder pain .) HEENT: positive: No symptoms Pulmonary: positive: No symptoms Cardiovascular: positive: No symptoms Gastrointestinal: positive: Flatus (She is passing flatus but has not had a bow el movement.). negative: Nausea, Vomiting Genitourinary: positive: No symptoms. negative: Pain Musculoskeletal: positive: No symptoms Skin: positive: No symptoms Psychiatric: positive: No symptoms Objective - Patient Data Reviewed Vital Signs: Yes Vital Signs: Vital Signs x48h Temp Pulse Resp BP Pulse Ox 03/14/19 09:00 37.0 C 90 17 102/48 L 96 Intake & Output: Intake and Output Totals x24h 03/12/19 03/13/19 03/14/19 23:59 23:59 23:59 Intake Total 7950.000 1886 500 Output Total 6250 4450 1450 Balance 1700.000 -2564 -950 - Lab Results Lab Results: 03/13/19 09:30 Other Lab Results: Lab Results x24hrs 03/13/19 Range/Units 09:30 WBC 6.6 (4.8-10.8) x10^3/uL RBC 3.05 L (4.20-5.40) 10^6/uL Hgb 9.3 L (12.0-16.0) g/dL Hct 28.6 L (37.0-47.0) % MCV 93.8 (81.0-99.0) fL MCH 30.5 (27.0-31.0) pg MCHC 32.5 (32.0-36.0) g/dL RDW 13.0 (12.0-15.0) % Plt Count 190 (130-450) 10^3/uL MPV 9.6 (7.9-10.8) fL Laboratory Tests 03/12/19 03/12/19 03/13/19 04:20 12:00 09:30 WBC 8.4 5.7 6.6 RBC 3.34 L 3.29 L 3.05 L Hgb 9.8 L 9.7 L 9.3 L Hct 30.7 L 30.6 L 28.6 L MCV 91.9 93.0 93.8 MCH 29.3 29.5 30.5 MCHC 31.9 L 31.7 L 32.5 RDW 12.9 13.0 13.0 Plt Count 203 198 190 MPV 10.1 9.3 9.6 Neut # (Auto) 6.0 3.3 Lymph # (Auto) 1.6 1.8 [place] # (Auto) 0.8 0.5 Eos # (Auto) 0.0 0.1 Baso # (Auto) 0.0 0.0 Absolute Nucleated RBC 0.00 0.00 Nucleated RBC % 0.0 0.0 - Current Medications Current Medications: Current Medications Generic Name Dose Route Start Last Admin Trade Name Freq PRN Reason Stop Dose Admin Acetaminophen 1,000 mg 03/12/19 00:00 03/14/19 02:05 Tylenol PO 1,000 mg Q8H JACKSON Administration Calcitriol 0.25 mcg 03/13/19 22:00 03/13/19 22:08 Rocaltrol PO 0.25 mcg BID JACKSON Administration Calcium Carbonate/Glycine 500 mg 03/13/19 22:00 03/13/19 22:08 Tums PO 500 mg DAILY JACKSON Administration Docusate Sodium 100 mg 03/11/19 21:00 03/13/19 20:58 Colace 100mg Capsule PO 100 mg BID JACKSON Administration Escitalopram Oxalate 10 mg 03/12/19 21:00 03/13/19 20:58 Lexapro PO 10 mg HS JACKSON Administration Hydromorphone HCl 0.5 mg 03/11/19 13:33 03/12/19 19:21 Dilaudid Inj Syringe IVP 0.5 mg Q30M PRN Administration Breakthrough Pain Ketorolac Tromethamine 30 mg 03/11/19 16:00 03/14/19 06:34 Toradol Inj (30mg) IVP 03/16/19 15:59 30 mg Q6HR JACKSON Administration Levothyroxine Sodium 112 mcg 03/12/19 07:00 03/14/19 06:35 Synthroid PO 112 mcg QDAC JACKSON Administration Levothyroxine Sodium 25 mcg 03/12/19 07:00 03/14/19 06:36 Synthroid PO 25 mcg QDAC JACKSON Administration Loratadine 10 mg 03/12/19 09:00 03/13/19 08:11 Claritin PO 10 mg DAILY JACKSON Administration Nitrofurantoin 100 mg 03/13/19 11:00 03/13/19 11:40 Macrobid PO 100 mg DAILY JACKSON Administration Oxycodone HCl 10 mg 03/11/19 13:33 03/13/19 22:47 Roxicodone PO 10 mg Q4HR PRN Administration PAIN Simethicone 80 mg 03/11/19 18:00 03/13/19 17:28 Mylicon PO 80 mg 0900,1300,1800 JACKSON Administration Sodium Chloride 10 ml 03/14/19 00:19 03/14/19 06:36 Normal Saline Flush 0.9% IVP 10 ml PRN PRN Administration NEEDED PER PROVIDER ORDERS - Physical Exam Wound/Incisions: positive: Healing well, Dressing dry and intact, No drainage General Appearance: positive: No acute distress, Alert Respiratory: positive: Chest non-tender, No respiratory distress, Breath sounds nml Cardiovascular: positive: Regular rate & rhythm, No murmur, No gallop Abdomen: positive: Non-tender, No organomegaly, Nml bowel sounds, No distention (No rigidity rebound or guarding is appreciated.) Neurologic/Psychiatric: positive: Oriented x3, Mood/affect nml Comments/Other: The gates catheter is in place and draining well with clear, yellow urine ABX Reporting Has patient been on IV antibiotics over the past 48 hours?: Yes Impression/Plan - Problem List Problem List: Impression: Postop day number - Stable Plan: The patient is doing very well today.She is without complaint. She will be allowed to be discharged home today. She states Dr. Springer has already arranged to follow-up appointment in the office and has already been prescribed all of her home-going medicines including pain medicines and Macrobid for prophylaxis due to the indwelling catheter and bladder injury.She has not had a bowel movement have as of yet and so she was given a Dulcolax suppository today. She will follow-up at home with stool softeners and MiraLAX as needed. She was discharged home with both written and verbal instructions which included/things as: She is to continue with all of her regular home-going medicines. She is to call if she has any temperatures greater than 100.4 or heavy vaginal bleeding. She is not to drive a car for the next 2 weeks. She is to forego any lifting, tampons, douching or intercourse. She is to call if she has any temperatures greater than 100.4She will continue to increase her fluids daily. As long as she does well she will be seen in the office in 1 week for an incision check. It is also of note that Dr. Springer states that he will dictate her formal discharge summary.
[2019-03-14] MEDS ORDERED: BISACODYL 10 MG SUPP PR PRN (09:52)
[2019-03-14] MEDS: CALCITRIOL 0.25 MCG CAPSULE PO SCH (10:44)
[2019-03-14] MEDS: CALCIUM CARBONATE CHEW 500 MG TABLET PO SCH (10:44)
[2019-03-14] MEDS: DOCUSATE SODIUM 100 MG CAPSULE PO SCH (10:44)
[2019-03-14] MEDS: LORATADINE 10 MG TABLET PO SCH (10:44)
[2019-03-14] MEDS: NITROFURANTOIN MACRO 100 MG CAPSULE PO SCH (10:44)
[2019-03-14] MEDS: SIMETHICONE CHEW 80 MG TABLET PO SCH (10:44)
[2019-03-14] MEDS: oxyCODONE 5 MG TABLET PO PRN (10:44)
--- NOTE | 2019-03-26 03:15 | DISCHARGE SUMMARY ---
Physician: Vazquez Springer MD DATE OF ADMISSION: 03/11/2019 DATE OF DISCHARGE: 03/14/2019 ADMITTING DIAGNOSES 1. Severe dysmenorrhea. 2. Menorrhagia. DISCHARGE DIAGNOSES 1. Severe dysmenorrhea. 2. Menorrhagia. 3. Neocystotomy PROCEDURE: Laparoscopically initiated hysterectomy with open hysterectomy, with closure of neocystostomy and cystoscopy. PRESENTING HISTORY: Patient is a 33-year-old. She is a 4, para 4 female who presents for heavy, painful periods. She states that she flows 3 days, flow up to 2 weeks. The first 5-7 days are very heavy, needing to change the pad every 2 hours. She will bring extra clothing to work. She will wear dark clothing also. She states she will pass clots, which are dollar bill size. She denies any history of anemia in the past. She is not currently taking iron. Her periods are bad enough that she will plan her life around them. She has tried control pills in the past, as well as the Mirena. She presents for a hysterectomy. We will plan to perform a laparoscopically-assisted hysterectomy. Of note is the fact that she had 4 previous sections in the past. LABORATORIES: Preoperative hemoglobin was 13.0, white count was 6.0, platelets were 289. Postoperatively, her hemoglobin fell to a lai of 9.3, hematocrit was 28.6, platelets were 190. Preoperatively, her electrolytes were all within normal limits. HOSPITAL COURSE: Patient was taken to the operating room and initiated a laparoscopically-assisted vaginal hysterectomy. She had multiple, dense adhesions noted from her previous section to the anterior portion of the uterus. These were carefully being taken down, during which time an inadvertent neocystostomy was performed. This was diagnosed during the procedure, so it was decided to open to close the neocystostomy. Her Pfannenstiel incision was opened and the remainder of the hysterectomy was performed. The apex was closed and the opening in the bladder was identified, and double layered with 2-0 Vicryl. Cystoscopy was performed and there was evidence of good closure. At this point, the patient's procedure was terminated. Postoperatively, patient did well. Her Farnsworth was left in place and she was sent home on the fourth day postoperatively. She was doing well at this time. She was sent home on discharge medications of oxycodone, Motrin, as well as Macrobid for prophylaxis. She had a wound VAC in place and she was instructed to follow up in 1 week for removal of this, as well as 10 days to go to Radiology, at which time a cystometrogram would be performed to ensure closure of the bladder. TD: 03/25/2019 16:45 MTDSimi
== END 2019-03-14 12:15 | disposition home or self-care (01) | DRG 742 ==
LOC: SDS 06:43 → MS2 13:33
PROVIDERS: ADMIT Obstetrics & Gynecology; ATTEND Obstetrics & Gynecology
PROC: 0UT54ZZ Resection of Right Fallopian Tube, Percutaneous Endoscopic Approach (ICD-10-PCS; 2019-03-11)
PROC: 0UN14ZZ Release Left Ovary, Percutaneous Endoscopic Approach (ICD-10-PCS; 2019-03-11)
PROC: 0DNW4ZZ Release Peritoneum, Percutaneous Endoscopic Approach (ICD-10-PCS; 2019-03-11)
PROC: 0TQB0ZZ Repair Bladder, Open Approach (ICD-10-PCS; 2019-03-11)
PROC: 0UT90ZZ Resection of Uterus, Open Approach (ICD-10-PCS; principal; 2019-03-11 08:15)
DX: N92.0 Excessive and frequent menstruation with regular cycle (principal); N99.71 Accidental puncture and laceration of a genitourinary system organ or structure during a genitourinary system procedure; N94.6 Dysmenorrhea, unspecified; E03.9 Hypothyroidism, unspecified; N73.6 Female pelvic peritoneal adhesions (postinfective); D64.9 Anemia, unspecified; F43.10 Post-traumatic stress disorder, unspecified; F32.9 Major depressive disorder, single episode, unspecified; F41.0 Panic disorder [episodic paroxysmal anxiety]; K21.9 Gastro-esophageal reflux disease without esophagitis; Z87.891 Personal history of nicotine dependence
CPT/HCPCS: 73501; 85025; 85027; A9270; J0131; J0690; J1170; J3010; J7120

== ENCOUNTER 2019-03-23 12:00 | Outpatient (CLI) | payer OTHER ==
[2019-03-23] MEDS ORDERED: IOTHALAMATE MEGLUMINE 250 ML VIAL UR ONE (14:05)
--- NOTE | 2019-03-23 14:54 | XRAY Report ---
Reason: STATUS POST BLADDER REPAIR Procedure Date: 03/23/2019 Accession Number: [id number] / [id number] Procedure: [place] - Cystography CPT Code: FULL RESULT: EXAM: CYSTOGRAM. EXAM DATE: 03/23/2019 12:50 PM. CLINICAL HISTORY: Status post bladder repair. COMPARISON: None. TECHNIQUE: Routine cystogram technique with catheter instillation of approximally 400 mL of Conray contrast into the bladder using gravity pressure under fluoroscopic observation. Multiple fluoroscopic spot films obtained in different projections. Fluoroscopic exposure time: 1 minute 27 seconds. Number of fluoroscopic images: 19. FINDINGS: Bladder: The bladder normally fills with contrast to an appropriate volume. No filling defects, masses or abnormal morphology. No leakage or extravasation of contrast. Post-drainage imaging unremarkable. Other: As previously discussed with the referring surgeon, the Farnsworth catheter was removed at the end of the examination given no evidence of residual injury. IMPRESSION: Normal cystogram. No contrast leakage or other abnormality noted. RADIA
== END 2019-03-23 12:01 | disposition home or self-care (01) ==
LOC: DI 12:00
PROVIDERS: ATTEND Obstetrics & Gynecology
DX: Z93.50 Unspecified cystostomy status (principal)
CPT/HCPCS: 74430

== ENCOUNTER 2021-11-03 08:00 | Outpatient (CLI) | payer OTHER ==
[2021-11-03 19:05] LABS: BASOPHILS % (AUTO) 0.5 %; EOSINOPHILS # (AUTO) 0.1 10^3/uL (0.0-0.7); EOSINOPHILS % (AUTO) 1.4 %; HCT - HEMATOCRIT 40.7 % (37.0-47.0); HGB - HEMOGLOBIN 13.4 g/dL (12.0-16.0); LYMPHOCYTES # (AUTO) 2.2 10^3/uL (1.5-3.5); LYMPHOCYTES % (AUTO) 38.7 %; MEAN CORPUSCULAR HEMOGLOBIN 30.4 pg (27.0-31.0); MEAN CORPUSCULAR HGB CONC 32.9 g/dL (32.0-36.0); MEAN CORPUSCULAR VOLUME 92.3 fL (81.0-99.0); MEAN PLATELET VOLUME 10.5 fL (7.9-10.8); MONOCYTES # (AUTO) 0.5 10^3/uL (0.0-1.0); MONOCYTES % (AUTO) 9.3 %; NEUTROPHILS # (AUTO) 2.8 10^3/uL (1.5-6.6); NEUTROPHILS % (AUTO) 49.9 %; PLT - PLATELET COUNT 254 10^3/uL (130-450); RED BLOOD COUNT 4.41 10^6/uL (4.20-5.40); RED CELL DISTRIBUTION WIDTH 11.8 % (12.0-15.0); WHITE BLOOD COUNT 5.6 x10^3/uL (4.8-10.8)
[2021-11-03 19:19] LABS: ALBUMIN 4.1 g/dL (3.2-5.5); ALBUMIN/GLOBULIN RATIO 1.5 (1.0-2.2); BILIRUBIN,TOTAL 0.6 mg/dL (0.2-1.0); CALCIUM 8.4 mg/dL (8.5-10.3); CREATININE 0.7 mg/dL (0.4-1.0); POTASSIUM 4.2 mmol/L (3.5-5.0); TOTAL PROTEIN 6.8 g/dL (6.7-8.2)
== END 2021-11-03 23:59 ==
LOC: LAB.N 08:00
PROVIDERS: ATTEND Family Medicine
DX: R10.9 Unspecified abdominal pain (principal)
CPT/HCPCS: 36415; 80053; 82150; 83690; 85025; 87086

== ENCOUNTER 2022-08-08 09:15 | Outpatient (CLI) | payer OTHER ==
[2022-08-08 09:41] VITALS: BP 130/72
--- NOTE | 2022-08-08 09:41 | SLEEP CARE CONSULTATION ---
Information from patient questionnaire entered by Marta Huerta. I have reviewed and concur with the information entered by Marta Huerta. This document represents the service I personally performed and the decisions made by me, Georgia Hernandez ARNP. History of Present Illness Service Date and Time: 08/08/2022 0915 Reason for Visit: New patient Chief Complaint: reports: Unrefreshed sleep, Fatigue, Frequent awakenings at night Date of Onset: 5YRS Usual bedtime: 10PM Time it takes to fall asleep: 30MIN Snores at night: Yes Observed to quit breathing while asleep: No Sleeps alone due to snoring: No Number of times waking at night: 4 Reasons for waking at night: reports: Other (UNKNOWN REASONS). denies: Choking, Snoring, Gasping for air Toss, Turn, or Twitch while sleeping: Yes Recalls having dreams: Yes Usually gets out of bed at: 615AM; weekends 0715 Feels refreshed in the morning: No Morning headache: No Sleepy or fatigued during the day: Yes Ever fallen asleep while driving: No Takes day naps: No Dreams during day naps: No Prior sleep studies: No Additional HPI information: I had the pleasure of seeing CATALINA TERRY today regarding the possibility of her having a sleep disorder. Her current complaints are unrefreshed sleep, frequent night awakenings and fatigue. She states she has had trouble sleeping since her thyroidectomy about 2017. She has PTSD and knows this can affect her sleep too. - Parasomnia Symptoms Ever been unable to move upon waking from sleep: No Walks in sleep: No Talks in sleep: Yes Ever acted out dreams in sleep: No Ever felt weak in the knees when startled or emotional: No Bothered by creepy, crawly, restless sensations in legs: No Problems with memory or concentration: Yes (more concentration) Subjective Initial Amory Sleepiness Scale score: 11 (07/18/2022) Past Medical History Past Medical History: reports: Hypothyroidism, Anxiety, Depression, Other (RHINITIS; PTSD) Social History The patient's occupation is a [employer]. Patient is and lives in [place]. Have you smoked in the past 12 months: No Cigarettes per day (20/pack): 20 Years of smokin Quit date: 2004 Smoking Pack Years: 1.0 Alcohol use: Yes Alcohol amount and frequency: 2 GLASSES DAILY Caffeine use: Yes Caffeine amount and frequency: 2 GLASSES DAILY Family History Family history of sleep disordered breathing: Yes Family Hx Sleep Apnea: Mother: Snoring, Father: Snoring, Sibling: Sleep apnea - Treated, Grandparent: Snoring Allergies and Home Medications Known drug allergies: No Drug allergies reviewed: Yes (NKDA) Home medication list reviewed: Yes Allergy and home medication list: Medications: Claritin Synthroid Lexapro Vitamin D, B Calcium Review of Systems Weight gain over past 5 years: 4 Weight loss over past 5 years: 0 Psychiatric: reports: anxiety, depression Ear/Nose/Throat: reports: nasal congestion, wisdom teeth removed, other (POST NASAL DRIP, TMJ). denies: tonsillectomy Endocrine: reports: thyroid disease, history of goiter, other (thyroid cancer- thyroidectomy 2017) Immunologic: reports: sneezing, allergies to food or environment (seasonal) Physical Exam Vital signs obtained and entered by: MARTA Multani MA Blood Pressure: 130/72 (LEFT ARM) Cuff size: regular Heart Rate: 80 O2 Saturation: 97 Height: 5 ft 2 in Weight: 174 lb 6.4 oz Body Mass Index: 31.8 BMI Classification: Obese Neck circumference: 13.5 Mouth and throat: narrow oropharynx Soft palate: long Hard palate: normal Uvula: normal Uvula visualization: 25% Mallampati Class III Tongue: enlarged in size with teeth lópez on lateral edges Tonsils: 1+ Neck: normal w/o lymphadenopathy or thyromegaly Heart: regular rate and rhythm Lungs: clear bilaterally Impression and Plan 1. Suspected Obstructive Sleep Apnea-Hypopnea Syndrome, as suggested by a history of loud and irregular snoring, frequent awakening during the night, unrefreshed sleep, cognitive impairment, and excessive daytime sleepiness. Narrow oropharynx and obesity are common predisposing factors for obstructive sleep apnea-hypopnea syndrome. I recommend proceeding to polysomnography to confirm the diagnosis and to assess severity. If the patient has significant sle ep disordered breathing, a manual CPAP titration study will also be performed to find the optimal treatment pressure. I informed the patient of what the sleep studies involve and after some discussion, obtained agreement to proceed. The pathophysiology of obstructive sleep apnea-hypopnea syndrome was discussed with the patient and health risks of cardiovascular and cerebrovascular disease if not treated. Risks of drowsy driving discussed in detail and patient advised to avoid long distance driving and to hand assembler for puller over at the first sign of drowsiness. Patient agreed to plan. * Schedule polysomnography * Avoid long distance driving or driving when feeling sleepy. * Avoid alcohol, sedative and muscle relaxant around bedtime. * Attempt to lose weight. * Review instructions provided by trained office staff on how to prepare for the sleep study. * Return for follow-up after sleep study completed. Counseling Topics: Weight loss health impact Visit Type: In Office Time Spent with Patient (minutes): 30 Provider Statement: I spent 100% of the Face to Face Visit with the patient with greater than 50% spent counseling the patient and coordination of care.
== END 2022-08-08 09:16 | disposition home or self-care (01) ==
LOC: SC 09:15
PROVIDERS: ATTEND Nurse Practitioner Family
DX: R06.83 Snoring (principal); G47.8 Other sleep disorders; G47.10 Hypersomnia, unspecified; R53.83 Other fatigue; F32.A Depression, unspecified; E66.9 Obesity, unspecified; Z68.31 Body mass index [BMI] 31.0-31.9, adult; Z87.891 Personal history of nicotine dependence
CPT/HCPCS: 99203; 99212

== ENCOUNTER 2022-08-26 20:34 | Outpatient (CLI) | payer OTHER | END 2022-08-26 20:35 | disposition home or self-care (01) | LOC: SC 20:34 | PROVIDERS: ATTEND Nurse Practitioner Family | DX: G47.61 Periodic limb movement disorder (principal) | CPT/HCPCS: 95810 ==